=== PATIENT | male | born 1985 | race African-American/Black ===

== ENCOUNTER 2021-08-21 23:45 | Emergency (ER) | payer MEDICAID ==
[~2021-08-21] VITALS: Ht 185.4 cm; Wt 81.2 kg
[2021-08-21 23:49] VITALS: BP 109/64
--- NOTE | 2021-08-22 02:37 | NUR ---
PT REFUSED BLOOD WORK. WHEN ASKED BY SPIRAL WINDER
--- NOTE | 2021-08-22 02:51 | NUR ---
PT NOT IN ROOM , ELOPED. MADE AWARE
== END 2021-08-22 02:52 | disposition left against medical advice (07) ==
LOC: ER 23:57
DX: R53.1 Weakness (principal); Z59.00 Homelessness unspecified
CPT/HCPCS: 82962-TC

== ENCOUNTER 2021-09-17 23:53 | Emergency (ER) | payer MEDICAID ==
[~2021-09-17] VITALS: Ht 182.9 cm; Wt 83.9 kg
[2021-09-18 00:16] VITALS: BP 122/68
--- NOTE | 2021-09-18 00:35 | NUR ---
Patient eloped from facility. ER DR. Gavin PRIDE notified.
== END 2021-09-18 00:45 | disposition left against medical advice (07) ==
LOC: ER 09-18 00:04
DX: R55 Syncope and collapse (principal); Z59.00 Homelessness unspecified

== ENCOUNTER 2022-02-02 07:31 | Emergency (ER) | payer MEDICAID ==
[~2022-02-02] VITALS: Ht 182.9 cm; Wt 83.9 kg
--- NOTE | 2022-02-02 08:36 | NUR ---
CALLED [employer] MILLING MACHINIST, NO ANSWER
--- NOTE | 2022-02-02 09:15 | NUR ---
CALLED STAFFING RECRUITER [phone], [id number], [id number]. NO ANSWER.
--- NOTE | 2022-02-02 09:43 | NUR ---
QUALITY LIAISON CALLED
--- NOTE | 2022-02-02 10:10 | NUR ---
Phlebotomy Technician Consult LIAN was paged by ER staff and was informed that pt. was homeless. Pt. is a 36 year old male. LIAN met with pt. at bed side. LIAN introduced self and purpose of meeting in which pt stated he "didn't need a social work professor" and wanted to leave. LIAN attempted to provide pt with homeless resources and [facility] placment information in which pt. declined. Pt. stated he was not homeless and did not want to provide his address. LIAN informed Nurse Figueroa and discussed outcome of meeting.
--- NOTE | 2022-02-02 10:27 | NUR ---
Patient discharged to home in stable condition. Written and verbal after care instructions given. Patient verbalizes understanding of instruction.
[2022-02-02 10:29] VITALS: BP 110/70
== END 2022-02-02 10:30 | disposition home or self-care (01) ==
LOC: ER 07:32
DX: Z59.00 Homelessness unspecified (principal)
CPT/HCPCS: 82962-TC

== ENCOUNTER 2022-02-04 19:35 | Emergency (ER) | payer MEDICAID ==
[~2022-02-04] VITALS: Ht 182.9 cm; Wt 83.9 kg
[2022-02-04 20:08] VITALS: BP 134/86
--- NOTE | 2022-02-04 20:51 | NUR ---
PT REFUSED BLOOD DRAW
--- NOTE | 2022-02-04 22:47 | NUR ---
PT LEFT SHORTLY AFTER HE WAS BROUUGHT IN TO THE ROOM WITHOUR BEING SEEN BY
== END 2022-02-04 23:01 | disposition left against medical advice (07) ==
LOC: ER 19:48
DX: Z53.21 Procedure and treatment not carried out due to patient leaving prior to being seen by health care provider (principal)

== ENCOUNTER 2023-10-04 03:44 | Emergency (ER) | payer MEDICAID, OTHER ==
[~2023-10-04] VITALS: Ht 180.3 cm; Wt 83.9 kg
[2023-10-04 04:55] LABS: APPEARANCE,URINE CLEAR (CLEAR); BILIRUBIN,URINE NEGATIVE (NEGATIVE); BLOOD, URINE NEGATIVE Ery/uL (NEGATIVE); COLOR,URINE YELLOW (YELLOW); KETONES,URINE TRACE mg/dL (NEGATIVE); LEUKOCYTE ESTERASE ,URINE NEGATIVE (NEGATIVE); NITRITE, URINE NEGATIVE (NEGATIVE); PROTEIN,URINE NEGATIVE (NEGATIVE); UGLUCOSE NEGATIVE (NEGATIVE); UROBILINOGEN,URINE 0.2 EU/dL (0.2)
[2023-10-04] MEDS ORDERED: ONDANSETRON HCL/PF 4 MG/2 ML VIAL ONE (05:06)
[2023-10-04] MEDS: IV NS 0.9% 1,000 ML IV ONE (05:17)
[2023-10-04] MEDS: ONDANSETRON HCL/PF - ER 4 MG/2 ML VIAL IV ONE (05:17)
[2023-10-04 05:42] VITALS: BP 118/78; TEMP 98; O2SAT 100
== END 2023-10-04 05:47 | disposition left against medical advice (07) ==
LOC: ER 03:49
DX: R11.2 Nausea with vomiting, unspecified (principal); R19.7 Diarrhea, unspecified
CPT/HCPCS: J2405; J7030